=== PATIENT | male | born 1990 | race Caucasian/White ===

== ENCOUNTER 2017-09-19 14:08 | Emergency (ER) | payer SELFPAY ==
[~2017-09-19] VITALS: Ht 185.4 cm; Wt 55.0 kg
[~2017-09-19 14:08] MED LIST: AUGM875T PO
[2017-09-19 14:26] VITALS: BP 106/64; PULSE 93; RESP 15; TEMP 98.3; O2SAT 98
--- NOTE | 2017-09-19 16:09 | PD ---
HPI Chief Complaint: Dizziness Time Seen by Provider: 16:09 Travel History International Travel<30 days: No Contact w/Intl Traveler<30days: No Traveled to known affect area: No History of Present Illness HPI Patient states that over the past 4-5 days he has developed nausea vomiting diarrhea some abdominal cramping, that has been ongoing, assoc with dry cough and occassional runny nose. Per patient he states that multiple family members are all in different stages of similar sickness. Patient denies any alleviating or aggravating factors. Patient denies any associated factors such as fever/rash/back pain/chest pain/neck pain/sore throat. Denies any known drug allergies Patient denies any significant past medical or surgical history PFSH Social History Alcohol Use: Yes ("RARELY") Tobacco Use: Yes (1/2 PPD) Substance Use: No Allergies-Medications (Allergen,Severity, Reaction): Coded Allergies: No Known Allergies (Unverified Allergy, Unknown, 09/19/17) Reported Meds & Prescriptions Reported Meds & Active Scripts Active No Active Prescriptions or Reported Medications Review of Systems General / Constitutional: No: Fever Eyes: No: Visual changes HENT: No: Headaches Cardiovascular: No: Chest Pain or Discomfort Respiratory: No: Shortness of Breath Gastrointestinal: Positive: Nausea, Vomiting, Diarrhea, Abdominal Pain (Mild abdominal cramping prior to having bowel movement, resolved fully after BM) Genitourinary: No: Dysuria Musculoskeletal: No: Pain Skin: No Rash Neurologic: No: Weakness Psychiatric: No: Depression Endocrine: No: Polydipsia Hematologic/Lymphatic: No: Easy Bruising Physical Exam Narrative GENERAL: SKIN: Warm and dry. HEAD: Atraumatic. Normocephalic. EYES: Pupils equal and round. No scleral icterus. No injection or drainage. ENT: No nasal bleeding or discharge. Mucous membranes pink and moist. NECK: Trachea midline. No JVD. CARDIOVASCULAR: Regular rate and rhythm. RESPIRATORY: No accessory muscle use. Clear to auscultation. Breath sounds equal bilaterally. GASTROINTESTINAL: Abdomen soft, non-tender, nondistended. MUSCULOSKELETAL: Extremities without clubbing, cyanosis, or edema. No obvious deformities. NEUROLOGICAL: Awake and alert. No obvious cranial nerve deficits. Motor grossly within normal limits. Five out of 5 muscle strength in the arms and legs. Normal speech. PSYCHIATRIC: Appropriate mood and affect; insight and judgment normal. Data Data Last Documented VS Vital Signs Date Time Temp Pulse Resp B/P (MAP) Pulse Ox O2 Delivery O2 Flow Rate FiO2 09/19/17 16:23 69 16 99 Room Air 09/19/17 14:26 98.3 Orders Orders Complete Blood Count With Diff (09/19/17 16:16) Comprehensive Metabolic Panel (09/19/17 16:16) Lipase (09/19/17 16:16) Urinalysis - C+S If Indicated (09/19/17 16:16) Iv Access Insert/Monitor (09/19/17 16:16) Ecg Monitoring (09/19/17 16:16) Oximetry (09/19/17 16:16) NPO (09/19/17 16:16) Ondansetron Inj (Zofran Inj) (09/19/17 16:30) Sodium Chlor 0.9% 1000 Ml Inj (Ns 1000 M (09/19/17 16:16) Sodium Chloride 0.9% Flush (Ns Flush) (09/19/17 16:30) Electrocardiogram (09/19/17 ) Ct Pulmonary Angiogram (09/19/17 16:32) Iohexol 350 Inj (Omnipaque 350 Inj) (09/19/17 17:44) Labs Laboratory Tests Test 09/19/17 16:54 09/19/17 17:59 White Blood Count 5.5 TH/MM3 Red Blood Count 4.73 MIL/MM3 Hemoglobin 14.9 GM/DL Hematocrit 42.9 % Mean Corpuscular Volume 90.7 FL Mean Corpuscular Hemoglobin 31.5 PG Mean Corpuscular Hemoglobin Concent 34.7 % Red Cell Distribution Width 12.5 % Platelet Count 229 TH/MM3 Mean Platelet Volume 8.6 FL Neutrophils (%) (Auto) 61.6 % Lymphocytes (%) (Auto) 30.9 % Monocytes (%) (Auto) 6.9 % Eosinophils (%) (Auto) 0.3 % Basophils (%) (Auto) 0.3 % Neutrophils # (Auto) 3.4 TH/MM3 Lymphocytes # (Auto) 1.7 TH/MM3 Monocytes # (Auto) 0.4 TH/MM3 Eosinophils # (Auto) 0.0 TH/MM3 Basophils # (Auto) 0.0 TH/MM3 CBC Comment DIFF FINAL Differential Comment Blood Urea Nitrogen 14 MG/DL Creatinine 0.88 MG/DL Random Glucose 73 MG/DL Total Protein 8.1 GM/DL Albumin 3.9 GM/DL Calcium Level 8.7 MG/DL Alkaline Phosphatase 53 U/L Aspartate Amino Transf (AST/SGOT) 13 U/L Alanine Aminotransferase (ALT/SGPT) 12 U/L Total Bilirubin 0.5 MG/DL Sodium Level 141 MEQ/L Potassium Level 4.0 MEQ/L Chloride Level 106 MEQ/L Carbon Dioxide Level 29.3 MEQ/L Anion Gap 6 MEQ/L Estimat Glomerular Filtration Rate 103 ML/MIN Lipase 75 U/L Urine Color YELLOW Urine Turbidity CLEAR Urine pH 6.5 Urine Specific [place] 1.027 Urine Protein NEG mg/dL Urine Glucose (UA) NEG mg/dL Urine Ketones NEG mg/dL Urine Occult Blood NEG Urine Nitrite NEG Urine Bilirubin NEG Urine Urobilinogen 2.0 MG/DL Urine Leukocyte Esterase NEG Urine WBC 1 /hpf Urine Mucus FEW /lpf Microscopic Urinalysis Comment CULT NOT INDICATED MDM Medical Decision Making Medical Screen Exam Complete: Yes Emergency Medical Condition: Yes Medical Record Reviewed: Yes Interpretation(s) EKG shows normal sinus rhythm, 68 bpm, normal intervals, however noted are fairly diffuse LA segment depressions Differential Diagnosis Viral versus bacterial gastroenteritis versus pancreatitis versus hepatitis versus electrolyte imbalance versus renal failure Narrative Course CBC she has negative leukocytosis, no anemia, normal platelet count, no left shift UA shows no evidence of UTI Electrolytes showed normal electrolytes, normal kidney liver and pancreatic functions. CAT scan of the chest as read by radiologist shows no evidence of pulmonary embolism, no acute coronary cardiopulmonary process, no evidence of pericardial effusion Diagnosis Primary Impression: viral syndrome Patient Instructions: General Instructions, Viral Syndrome (DC) Scripts Tramadol (Ultram) 50 Mg Tab 50 MG PO Q8H Y for PAIN, #15 TAB 0 Refills Prov: Rj Salguero MD 09/19/17 Ondansetron Odt (Zofran Odt) 4 Mg Tab 4 MG SL Q8HR Y for Nausea/Vomiting, #20 TAB 0 Refills Prov: Rj Salguero MD 09/19/17 Disposition: 01 DISCHARGE HOME Condition: Stable Rj Salguero MD Sep 19, 2017 16:09
[2017-09-19] MEDS ORDERED: SODIUM CHLOR 0.9% 1000 ML INJ 1,000 ML IV SCH (16:16)
[2017-09-19 16:17] VITALS: BP 103/63; PULSE 75; RESP 16; O2SAT 97
[2017-09-19 16:23] VITALS: PULSE 69; RESP 16; O2SAT 99
[2017-09-19] MEDS ORDERED: SODIUM CHLORIDE 0.9% FLUSH 10 ML FLUSH IV FLUSH PRN (16:30)
[2017-09-19] MEDS ORDERED: ONDANSETRON HCL 4 MG/2 ML VIAL IVP ONE (16:30)
[2017-09-19 17:22] LABS: AUTOMATED NEUTROPHIL # 3.4 TH/MM3 (1.8-7.7); BASOPHIL % 0.3 % (0.0-2.0); EOSINOPHIL % 0.3 % (0.0-4.0); HEMATOCRIT 42.9 % (39.0-51.0); HEMOGLOBIN 14.9 GM/DL (13.0-17.0); LYMPH % 30.9 % (9.0-44.0); LYMPHOCYTE # 1.7 TH/MM3 (1.0-4.8); MEAN CELL VOLUME 90.7 FL (80.0-100.0); MEAN CORPUSCULAR HEMOGLOBIN 31.5 PG (27.0-34.0); MEAN CORPUSCULAR HGB CONC 34.7 % (32.0-36.0); MEAN PLATELET VOLUME 8.6 FL (7.0-11.0); MONO % 6.9 % (0.0-8.0); MONOCYTE # 0.4 TH/MM3 (0-0.9); NEUT % 61.6 % (16.0-70.0); PLATELET COUNT 229 TH/MM3 (150-450); RED BLOOD COUNT 4.73 MIL/MM3 (4.50-5.90); RED CELL DISTRIBUTION WIDTH 12.5 % (11.6-17.2); WHITE BLOOD COUNT 5.5 TH/MM3 (4.0-11.0)
[2017-09-19] MEDS ORDERED: IOHEXOL 350 MG/ML 10 ML VIAL (for RAD DIAG) IVCONTRAST ONE (17:44)
[2017-09-19 17:53] LABS: ALBUMIN 3.9 GM/DL (3.4-5.0); ALT (GPT) 12 U/L (12-78); AST (GOT) 13 U/L (15-37); BICARBONATE 29.3 MEQ/L (21.0-32.0); BLOOD UREA NITROGEN 14 MG/DL (7-18); CALCIUM 8.7 MG/DL (8.5-10.1); CHLORIDE 106 MEQ/L (98-107); CREATININE 0.88 MG/DL (0.60-1.30); GLOMERULAR FILTRATION RATE 103 ML/MIN (>89); GLUCOSE,RANDOM 73 MG/DL (74-106); SODIUM (NA) 141 MEQ/L (136-145)
[2017-09-19 17:55] LABS: ALKALINE PHOSPHATASE 53 U/L (45-117); TOTAL BILIRUBIN ADULT 0.5 MG/DL (0.2-1.0); TOTAL PROTEIN 8.1 GM/DL (6.4-8.2)
--- NOTE | 2017-09-19 17:58 | RADRPT ---
EXAM DATE/TIME: 09/19/2017 17:32 [facility] COMPARISON: No previous studies available for comparison. INDICATIONS : General weakness for one week. IV CONTRAST: 55 cc Omnipaque 350 (iohexol) IV RADIATION DOSE: 4.82 CTDIvol (mGy) MEDICAL HISTORY : None SURGICAL HISTORY : None. ENCOUNTER: Initial ACUITY: 1 day PAIN SCALE: 0/10 LOCATION: Bilateral chest TECHNIQUE: Volumetric scanning of the chest was performed using a pulmonary embolism protocol MIP images were re constructed. Using automated exposure control and adjustment of the mA and/or kV according to patien t size, radiation dose was kept as low as reasonably achievable to obtain optimal diagnostic quality images. DICOM format image data is available electronically for review and comparison. Follow-up recommendations for detected pulmonary nodules are based at a minimum on nodule size and pa tient risk factors according to Fleischner Society Guidelines. FINDINGS: PULMONARY ARTERIES: No filling defects are seen in the pulmonary arteries through the segmental level. LUNGS: There is no consolidation or pneumothorax . No concerning pulmonary nodule is visualized. PLEURAE: There is no pleural thickening or pleural effusion. MEDIASTINUM: There is good visualization of the great vessels of the middle mediastinum. No evidence of mediastin al or hilar adenopathy/mass. MUSCULOSKELETAL: Within normal limits for patient age. MISCELLANEOUS: The visualized upper abdominal organs demonstrate no acute abnormality. CONCLUSION: No evidence of pulmonary embolism or acute cardiopulmonary process. No evidence of pericardial effusion. Lazaro Ty MD on September 19, 2017 at 17:54 Board Certified Radiologist. This report was verified electronically.
[2017-09-19 18:13] LABS: BILIRUBIN, URINE NEG (NEG); BLOOD, URINE NEG (NEG); GLUCOSE,URINE NEG (NEG); KETONE, URINE NEG (NEG); MUCUS URINE FEW /lpf (OCC); NITRITE,URINE NEG (NEG); PH, URINE 6.5 (5.0-8.5); URINE COLOR YELLOW (YELLW/STRAW); URINE LEUKOCYTE ESTERASE NEG (NEG)
[2017-09-19] MEDS ORDERED: ZOFR4TAB3 SL (18:18)
[2017-09-19] MEDS ORDERED: TRAM50 PO (18:18)
--- NOTE | 2017-09-20 09:01 | EKG ---
Date Performed: 09/19/2017 Time Performed: 16:24:18 PTAGE: 27 years EKG: Sinus rhythm NORMAL ECG NO PREVIOUS TRACING DOCTOR: Avinash Welch Interpretating Date/Time 09/20/2017 09:00:19
== END 2017-09-19 18:54 | disposition home or self-care (01) ==
LOC: NEPC 14:08
DX: B34.9 Viral infection, unspecified (principal); R07.9 Chest pain, unspecified; F17.200 Nicotine dependence, unspecified, uncomplicated
CPT/HCPCS: 71275; 80053; 81001; 83690; 85025; 93005; 96374; 99285; J2405; J7030; Q9967

== ENCOUNTER 2017-10-18 02:11 | Emergency (ER) | payer SELFPAY ==
[~2017-10-18] VITALS: Ht 185.4 cm; Wt 55.0 kg
[~2017-10-18 02:11] MED LIST changes: -AUGM875T PO; +TRAM50 PO; +ZOFR4TAB3 SL
[2017-10-18 02:15] VITALS: BP 117/75; PULSE 79; RESP 18; TEMP 98.8; O2SAT 98
[2017-10-18 03:00] VITALS: BP 117/63; PULSE 72; RESP 18; O2SAT 99
[2017-10-18] MEDS ORDERED: ONDANSETRON HCL 4 MG/2 ML VIAL IV PUSH ONE (03:00)
[2017-10-18] MEDS ORDERED: SODIUM CHLOR 0.9% 1000 ML INJ 1,000 ML IV SCH (03:00)
[2017-10-18] MEDS ORDERED: DIPHTH/TETANUS/ACEL PERTUSSIS (BOOSTER) 0.5 ML VIAL/PFS IM ONE (03:00)
[2017-10-18] MEDS ORDERED: SODIUM CHLORIDE 0.9% FLUSH 10 ML FLUSH IVF PRN (03:00)
[2017-10-18] MEDS ORDERED: ceFAZolin 2 GM PREMIX 100 ML IV ONE (03:00)
[2017-10-18] MEDS ORDERED: MORPHINE SULFATE 4 MG/ML INJ IV PUSH ONE (03:00)
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
[2017-10-18] MEDS ORDERED: IOHEXOL 350 MG/ML 10 ML VIAL (for RAD DIAG) IVCONTRAST ONE (03:37)
[2017-10-18 04:07] VITALS: RESP 18; O2SAT 99
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
[2017-10-18 04:08] VITALS: BP 105/67; PULSE 66; RESP 20; O2SAT 100
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
[2017-10-18 04:10] VITALS: RESP 16
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
[2017-10-18 04:15] LABS: BASOPHIL % 0.4 % (0.0-2.0); EOSINOPHIL % 0.4 % (0.0-4.0); HEMATOCRIT 38.5 % (39.0-51.0); HEMOGLOBIN 13.3 GM/DL (13.0-17.0); LYMPH % 17.5 % (9.0-44.0); LYMPHOCYTE # 1.2 TH/MM3 (1.0-4.8); MEAN CELL VOLUME 90.4 FL (80.0-100.0); MEAN CORPUSCULAR HEMOGLOBIN 31.2 PG (27.0-34.0); MEAN CORPUSCULAR HGB CONC 34.5 % (32.0-36.0); MEAN PLATELET VOLUME 8.6 FL (7.0-11.0); MONO % 6.5 % (0.0-8.0); MONOCYTE # 0.4 TH/MM3 (0-0.9); NEUT % 75.2 % (16.0-70.0); PLATELET COUNT 201 TH/MM3 (150-450); RED BLOOD COUNT 4.26 MIL/MM3 (4.50-5.90); RED CELL DISTRIBUTION WIDTH 12.6 % (11.6-17.2); WHITE BLOOD COUNT 6.7 TH/MM3 (4.0-11.0)
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
[2017-10-18 04:25] LABS: INTERNATIONAL NORMALIZED RATIO 1.3 RATIO; PROTHROMBIN TIME - PATIENT 12.7 SEC (9.8-11.6)
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
[2017-10-18] MEDS ORDERED: HYDR-3516 PO (05:32)
== END 2017-10-18 06:19 | disposition home or self-care (01) ==
LOC: NEPC 02:11
DX: M25.422 Effusion, left elbow (principal); S01.01XA Laceration without foreign body of scalp, initial encounter; M25.522 Pain in left elbow; M25.552 Pain in left hip; M25.561 Pain in right knee; F17.210 Nicotine dependence, cigarettes, uncomplicated; V13.4XXA Pedal cycle driver injured in collision with car, pick-up truck or van in traffic accident, initial encounter; Y93.55 Activity, bike riding; Z23 Encounter for immunization
CPT/HCPCS: 70450; 71045; 71260; 72125; 73070; 73502; 73564; 74177; 80048; 80307; 85025; 85384; 85610; 85730; 86850; 86900; 86901; 86920; 90471; 90715; 96365; 96375; 99285; J2270; J2405; J7030; Q9967

== ENCOUNTER 2017-12-08 11:34 | Emergency (ER) | payer SELFPAY ==
[~2017-12-08] VITALS: Ht 185.4 cm; Wt 55.0 kg
[~2017-12-08 11:34] MED LIST changes: +HYDR-3516 PO; -TRAM50 PO; -ZOFR4TAB3 SL
[2017-12-08] MEDS ORDERED: IOHEXOL 350 MG/ML 10 ML VIAL (for RAD DIAG) IVCONTRAST ONE (11:35)
[2017-12-08 11:49] VITALS: BP 111/66; PULSE 60; RESP 18; TEMP 97.4; O2SAT 100
[2017-12-08] MEDS ORDERED: SODIUM CHLOR 0.9% 1000 ML INJ 1,000 ML IV SCH (11:55)
[2017-12-08] MEDS ORDERED: SODIUM CHLORIDE 0.9% FLUSH 10 ML FLUSH IV FLUSH PRN (12:00)
[2017-12-08] MEDS ORDERED: FAMOTIDINE 20 MG/2 ML VIAL IV PUSH ONE (12:00)
[2017-12-08] MEDS ORDERED: PROCHLORPERAZINE INJ 10 MG/2 ML VIAL IV PUSH ONE (12:00)
[2017-12-08] MEDS ORDERED: MORPHINE SULFATE 4 MG/ML INJ IV PUSH ONE (12:00)
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
[2017-12-08 12:18] VITALS: BP 102/66; PULSE 50; RESP 18; O2SAT 100
--- NOTE | 2017-12-08 12:19 | RADRPT ---
EXAM DATE: 12/08/2017 12:16 PM EDT AGE/SEX: 27 years / Male INDICATIONS: Vomiting. CLINICAL DATA: This is the patient's initial encounter. Patient reports that signs and symptoms have been present for 1 day and indicates a pain score of 0/10. MEDICAL/SURGICAL HISTORY: None. None. COMPARISON: [facility], CHEST SINGLE AP, 10/18/2017. . FINDINGS: A single AP view of the chest demonstrates the lungs to be symmetrically aerated without evidence of mass, infiltrate or effusion. The cardiomediastinal contours are unremarkable. Osseous structures a re intact. CONCLUSION: No acute intrathoracic disease. Stable examination of the chest. Electronically signed by: Jose Elias Mcdowell MD 12/08/2017 12:18 PM EDT
[2017-12-08 12:39] LABS: AUTOMATED NEUTROPHIL # 7.1 TH/MM3 (1.8-7.7); BASOPHIL % 0.1 % (0.0-2.0); EOSINOPHIL % 0.1 % (0.0-4.0); HEMATOCRIT 41.9 % (39.0-51.0); HEMOGLOBIN 14.3 GM/DL (13.0-17.0); INTERNATIONAL NORMALIZED RATIO 1.1 RATIO; LYMPH % 10.6 % (9.0-44.0); LYMPHOCYTE # 0.9 TH/MM3 (1.0-4.8); MEAN CELL VOLUME 91.8 FL (80.0-100.0); MEAN CORPUSCULAR HEMOGLOBIN 31.3 PG (27.0-34.0); MEAN CORPUSCULAR HGB CONC 34.1 % (32.0-36.0); MEAN PLATELET VOLUME 8.9 FL (7.0-11.0); MONO % 4.2 % (0.0-8.0); MONOCYTE # 0.3 TH/MM3 (0-0.9); PLATELET COUNT 221 TH/MM3 (150-450); PROTHROMBIN TIME - PATIENT 11.3 SEC (9.8-11.6); RED BLOOD COUNT 4.57 MIL/MM3 (4.50-5.90); RED CELL DISTRIBUTION WIDTH 13.1 % (11.6-17.2); WHITE BLOOD COUNT 8.3 TH/MM3 (4.0-11.0)
[2017-12-08 12:49] LABS: ALT (GPT) 14 U/L (12-78); AST (GOT) 14 U/L (15-37); BICARBONATE 19.5 MEQ/L (21.0-32.0); BLOOD UREA NITROGEN 11 MG/DL (7-18); CALCIUM 8.8 MG/DL (8.5-10.1); CHLORIDE 110 MEQ/L (98-107); CREATININE 0.77 MG/DL (0.60-1.30); GLOMERULAR FILTRATION RATE 120 ML/MIN (>89); GLUCOSE,RANDOM 97 MG/DL (74-106); SODIUM (NA) 141 MEQ/L (136-145)
[2017-12-08 12:52] LABS: ALKALINE PHOSPHATASE 54 U/L (45-117); TOTAL BILIRUBIN ADULT 0.8 MG/DL (0.2-1.0); TOTAL PROTEIN 7.2 GM/DL (6.4-8.2)
[2017-12-08 13:00] VITALS: BP 74/42; PULSE 60
[2017-12-08 13:15] VITALS: BP 91/51; PULSE 56; RESP 18; O2SAT 99
[2017-12-08] MEDS ORDERED: SODIUM CHLOR 0.9% 1000 ML INJ 1,000 ML IV ONE ×2 (13:15)
[2017-12-08 13:41] VITALS: BP 94/55; PULSE 56
--- NOTE | 2017-12-08 13:52 | RADRPT ---
EXAM DATE: 12/08/2017 1:42 PM EDT AGE/SEX: 27 years / Male INDICATIONS: ABDOMEN Pain, with NAUSEA AND VOMITING CLINICAL DATA: This is the patient's initial encounter. Patient reports that signs and symptoms have been present for 1 day and indicates a pain score of 5/10. MEDICAL/SURGICAL HISTORY: None. None. ORAL CONTRAST: No oral contrast ingested. RADIATION DOSE: 4.48 CTDI (mGy) [place] [facility] [place] 10/18/2017. . TECHNIQUE: Multiple contiguous axial images were obtained through the abdomen and pelvis following b olus infusion of 69 ml Omnipaque 350 (iohexol) nonionic water-soluble contrast as a single exam dos e. No oral contrast ingested. Using automated exposure control and adjustment of the mA and/or kV ac cording to patient size, radiation dose was kept as low as reasonably achievable to obtain optimal di agnostic quality images. DICOM format image data is available electronically for review and comparis on. FINDINGS: The visualized portion of lung base is clear. The appearance of the liver, spleen, pancreas, adrenal glands and kidneys is within normal limits. The abdominal aorta is normal in caliber. There is no retroperitoneal lymphadenopathy. No free air fr ee fluid is seen within the abdomen. The visualized loops of small and large bowel demonstrate some mild diffuse thickening of the transve rse colon suggesting a colitis. The remainder of the colon appears fairly normal in caliber. There is no free fluid within the pelvis. No iliac or inguinal adenopathy is present. The visualized bony structures are intact. CONCLUSION: 1. The examination demonstrates possible thickening of the transverse colon. The exam would raise co ncern for possible colitis. This appears limited to the transverse colon. 2. No free air free fluid is seen. No abscess is identified. Electronically signed by: Chandra Pierce MD 12/08/2017 1:51 PM EDT
--- NOTE | 2017-12-08 14:39 | PD ---
Physical Exam Date Seen by Provider: Dec 08, 2017 Data Data Last Documented VS Vital Signs Date Time Temp Pulse Resp B/P (MAP) Pulse Ox O2 Delivery O2 Flow Rate FiO2 12/08/17 13:41 56 94/55 (68) 12/08/17 13:15 18 99 12/08/17 11:49 97.4 Orders Orders Complete Blood Count With Diff (12/08/17 11:55) Comprehensive Metabolic Panel (12/08/17 11:55) Lipase (12/08/17 11:55) Lactic Acid (12/08/17 11:55) Prothrombin Time / Inr (Pt) (12/08/17 11:55) Act Partial Throm Time (Ptt) (12/08/17 11:55) Urinalysis - C+S If Indicated (12/08/17 11:55) Ct Abd/Pel W Iv Contrast(Rout) (12/08/17 11:55) Iv Access Insert/Monitor (12/08/17 11:55) Ecg Monitoring (12/08/17 11:55) Oximetry (12/08/17 11:55) Morphine Inj (Morphine Inj) (12/08/17 12:00) Sodium Chlor 0.9% 1000 Ml Inj (Ns 1000 M (12/08/17 11:55) Sodium Chloride 0.9% Flush (Ns Flush) (12/08/17 12:00) Chest, Single Ap (12/08/17 11:55) Famotidine Inj (Pepcid Inj) (12/08/17 12:00) Prochlorperazine Inj (Compazine Inj) (12/08/17 12:00) Sodium Chlor 0.9% 1000 Ml Inj (Ns 1000 M (12/08/17 13:15) Sodium Chlor 0.9% 1000 Ml Inj (Ns 1000 M (12/08/17 13:15) Iohexol 350 Inj (Omnipaque 350 Inj) (12/08/17 11:35) Labs Laboratory Tests Test 12/08/17 12:15 12/08/17 12:16 12/08/17 14:25 White Blood Count 8.3 TH/MM3 Red Blood Count 4.57 MIL/MM3 Hemoglobin 14.3 GM/DL Hematocrit 41.9 % Mean Corpuscular Volume 91.8 FL Mean Corpuscular Hemoglobin 31.3 PG Mean Corpuscular Hemoglobin Concent 34.1 % Red Cell Distribution Width 13.1 % Platelet Count 221 TH/MM3 Mean Platelet Volume 8.9 FL Neutrophils (%) (Auto) 85.0 % Lymphocytes (%) (Auto) 10.6 % Monocytes (%) (Auto) 4.2 % Eosinophils (%) (Auto) 0.1 % Basophils (%) (Auto) 0.1 % Neutrophils # (Auto) 7.1 TH/MM3 Lymphocytes # (Auto) 0.9 TH/MM3 Monocytes # (Auto) 0.3 TH/MM3 Eosinophils # (Auto) 0.0 TH/MM3 Basophils # (Auto) 0.0 TH/MM3 CBC Comment DIFF FINAL Differential Comment Prothrombin Time 11.3 SEC Prothromb Time International Ratio 1.1 RATIO Activated Partial Thromboplast Time 25.4 SEC Blood Urea Nitrogen 11 MG/DL Creatinine 0.77 MG/DL Random Glucose 97 MG/DL Total Protein 7.2 GM/DL Albumin 4.0 GM/DL Calcium Level 8.8 MG/DL Alkaline Phosphatase 54 U/L Aspartate Amino Transf (AST/SGOT) 14 U/L Alanine Aminotransferase (ALT/SGPT) 14 U/L Total Bilirubin 0.8 MG/DL Sodium Level 141 MEQ/L Potassium Level 3.9 MEQ/L Chloride Level 110 MEQ/L Carbon Dioxide Level 19.5 MEQ/L Anion Gap 12 MEQ/L Estimat Glomerular Filtration Rate 120 ML/MIN Lipase 38 U/L Lactic Acid Level 1.6 mmol/L MDM Medical Record Reviewed: Yes Supervised Visit with HUNG: Yes Narrative Course I, Dr. Hubbard, have reviewed the advance practice practitioner's documentation and am in agreement, met with the patient face to face, made the diagnosis, and the medical decision making was done by me. *My assessment and Findings: Nausea, vomiting and diarrhea due to colitis. Patient is a 27-year-old male who presents to the emergency room for evaluation of nausea, vomiting abdominal pain which began around 6:30 AM this morning. Patient reports that he ate turkey club sandwich last night, reports that he is the only one sick today, denies any sick contacts. Reports that out of no where , he began to get sick. Reports that he has been unable to keep down any foods or fluids since this morning. Patient reports abdominal tenderness due to his intractable nausea vomiting diarrhea. Patient denies any recent travels or trips. Patient had extensive workup while in the emergency room, lab work showed: CBC & BMP Diagram 12/08/17 12:15 Total Protein 7.2, Albumin 4.0, Calcium Level 8.8, Alkaline Phosphatase 54, Aspartate Amino Transf (AST/SGOT) 14 L, Alanine Aminotransferase (ALT/SGPT) 14, Total Bilirubin 0.8 Lactic acid of 1.6, WBC 8.3 Last Impressions Chest X-Ray 12/08/17 1155 Signed Impressions: CONCLUSION: No acute intrathoracic disease. Stable examination of the chest. Abdomen/Pelvis CT 12/08/17 1155 Signed Impressions: CONCLUSION: 1. The examination demonstrates possible thickening of the transverse colon. T he exam would raise concern for possible colitis. This appears limited to the t ransverse colon. 2. No free air free fluid is seen. No abscess is identified. CT of abdomen pelvis with possible thickening of the transverse colon, concerns for possible colitis. Vital Signs Date Time Temp Pulse Resp B/P (MAP) Pulse Ox O2 Delivery O2 Flow Rate FiO2 12/08/17 13:41 56 94/55 (68) 12/08/17 13:15 56 18 91/51 (64) 99 12/08/17 13:00 60 74/42 (53) 12/08/17 12:18 50 18 102/66 (78) 100 12/08/17 11:49 97.4 60 18 111/66 (81) 100 Patient's vital signs have been labile emergency room, patient's blood pressure currently 94/55. I did recommend to patient that he should be admitted to the hospital for IV hydration and for treatment of his colitis. Patient reports that he is feeling much better and does not want to be admitted to the hospital , he wishes to be discharged and reports that if he is not feeling any better, he will return to the ER. Signs and symptoms of when to return to the ER was reviewed with patient in detail. Condition: Stable Christina Hubbard DO Dec 08, 2017 14:39
[2017-12-08] MEDS ORDERED: CIPR-9 PO (14:42)
[2017-12-08] MEDS ORDERED: METR-1 PO (14:42)
[2017-12-08] MEDS ORDERED: ZOFR4TAB PO (14:43)
[2017-12-08 14:44] LABS: BILIRUBIN, URINE NEG (NEG); BLOOD, URINE NEG (NEG); GLUCOSE,URINE NEG (NEG); KETONE, URINE 80 OR GREATER mg/dL (NEG); NITRITE,URINE NEG (NEG); URINE COLOR YELLOW (YELLW/STRAW); URINE LEUKOCYTE ESTERASE NEG (NEG)
[2017-12-08 15:09] VITALS: BP 99/58
== END 2017-12-08 15:13 | disposition home or self-care (01) ==
LOC: NEPD 11:34
DX: K52.9 Noninfective gastroenteritis and colitis, unspecified (principal); R10.9 Unspecified abdominal pain; F17.200 Nicotine dependence, unspecified, uncomplicated; F12.90 Cannabis use, unspecified, uncomplicated
CPT/HCPCS: 71045; 74177; 80053; 81001; 83605; 83690; 85025; 85610; 85730; 96361; 96374; 96375; 99285; J0780; J2270; J7030; Q9967